=== PATIENT | male | born 1940 | race Caucasian/White ===

== ENCOUNTER → 2019-11-30 16:52 | Outpatient (CLI) | payer MEDICARE, SELFPAY ==
[2019-11-30 17:25] LABS: Add Manual Diff / Slide Review NO; Basophils Absolute Auto 100 /uL (0-100); Basophils Percent Auto 1.2 % (0-2); Eosinophils Absolute Auto 100 /uL (0-450); Eosinophils Percent Auto 1.4 % (2-4); Hematocrit 40.5 % (41-53); Hemoglobin 13.9 g/dL (13.5-17.5); Lymphocytes Absolute Auto 2200 /uL (1100-4500); Lymphocytes Percent Auto 33.7 % (25-40); Mean Corpuscular HGB Conc 34.4 % (30-36); Mean Corpuscular Hemoglobin 32.3 PG (26-34); Mean Corpuscular Volume 93.9 fL (80-100); Monocytes Absolute Auto 500 /uL (0-900); Monocytes Percent Auto 6.9 % (3-14); Neutrophils Absolute Auto 3700 /uL (1500-7000); Neutrophils Percent Auto 56.8 % (50-75); Platelet Count 194 X10^3/uL (150-400); Red Blood Cell Count 4.31 X10^6/uL (4.5-5.9); Red Cell Distribution Width 13.5 % (11.6-14.8); White Blood Cell Count 6.6 X10^3/uL (4.5-11.0)
[2019-11-30 18:06] LABS: Alanine Aminotransferase 14 IU/L (<50); Albumin Globulin Ratio 1.3 (1.0-2.8); Alkaline Phosphatase 66 U/L (38-126); Aspartate Aminotransferase 18 IU/L (17-59); BUN Creatinine Ratio 22.3 (6-22); Bilirubin Total 1.1 mg/dL (0.2-1.3); Blood Urea Nitrogen 29 mg/dL (9-20); Calcium 9.4 mg/dL (8.4-10.2); Carbon Dioxide 25 mmol/L (22-32); Chloride 106 mmol/L (98-107); Cholesterol 193 mg/dL (140-199); Estimated Glomerular Filt Rate 53.1 mL/min (>60); Globulin 3.2 g/dL (1.7-4.1); Glucose 88 mg/dL (80-110); HDL Cholesterol 59 mg/dL (40-60); HEMOLYSIS < 15 (0-50); LDL Cholesterol Calculated 103 mg/dL (<100); Potassium 4.5 mmol/L (3.4-5.1); Sodium 139 mmol/L (137-145); Total Protein 7.2 g/dL (6.3-8.2); Triglycerides 157 mg/dL (35-150)
== END ==
PROVIDERS: PCP Internal Medicine; Referring Provider Internal Medicine; Visit Provider Internal Medicine
DX: Z00.00 Encounter for general adult medical examination without abnormal findings (principal); E78.2 Mixed hyperlipidemia; R15.9 Full incontinence of feces
CPT/HCPCS: 36415; 80053; 80061; 85025

== ENCOUNTER → 2019-12-03 12:28 | Outpatient (CLI) | payer MEDICARE, SELFPAY ==
[2019-12-03 13:15] LABS: HEMOLYSIS < 15 (0-50); Iron 136 ug/dL (49-181)
[2019-12-03 13:28] LABS: Percent Iron Saturation 34 % (20-50); Total Iron Binding Capacity 405 ug/dL (261-462); Transferrin 310 mg/dL (206-381)
[2019-12-03 13:51] LABS: Ferritin 14 ng/mL (18-464)
== END ==
PROVIDERS: PCP Internal Medicine; Referring Provider Internal Medicine; Visit Provider Internal Medicine
DX: D64.9 Anemia, unspecified (principal)
CPT/HCPCS: 36415; 82728; 83540; 83550

== ENCOUNTER → 2020-07-27 11:41 | Outpatient (CLI) | payer MEDICARE, SELFPAY ==
[2020-07-27 12:40] LABS: Hematocrit 43.5 % (41-53)
[2020-07-27 12:49] LABS: Estimated Glomerular Filt Rate 54.6 mL/min (>60); HEMOLYSIS < 15 (0-50); Potassium 4.5 mmol/L (3.4-5.1)
== END ==
PROVIDERS: PCP Internal Medicine; Referring Provider Colon & Rectal Surgery; Visit Provider Colon & Rectal Surgery
DX: Z01.818 Encounter for other preprocedural examination (principal)
CPT/HCPCS: 36415; 82565; 84132; 85014; 93005; 93010

== ENCOUNTER → 2020-08-02 09:59 | Outpatient (CLI) | payer MEDICARE, SELFPAY ==
[2020-08-02 11:32] LABS: COVID19 -Nasal RAPID Negative (Negative)
== END ==
PROVIDERS: PCP Internal Medicine; Visit Provider Student in an Organized Health Care Education/Training Program
DX: Z20.822 Contact with and (suspected) exposure to COVID-19 (principal)
CPT/HCPCS: 87635; C9803

== ENCOUNTER → 2020-08-24 13:20 | Outpatient (CLI) | payer MEDICARE, SELFPAY ==
--- NOTE | 2020-08-24 | DI.MRI.S_ITS ---
PROCEDURE: MR LUMBAR SPINE WO CON INDICATIONS: Spinal stenosis, lumbar region with neurogenic cla TECHNIQUE: Noncontrast sagittal T1 spin echo and T2 fast echo, sagittal STIR, axial T1 and T2 fast spin echo through the lumbar spine. In cases with scoliosis, additional coronal T2 fast spin echo may be performed. COMPARISON: None. FINDINGS: Image quality: Excellent. Alignment and Curvature: There is normal bony alignment. Transitional lumbosacral vertebra, with hypoplastic S1-S2 disc space. Please see the montage image for spinal segmental level nomenclature for this report. Bone Marrow: Marrow is of normal overall signal. No acute vertebral body compression fractures. Spinal Cord: Conus medullaris terminates at the L2-3 level. Visualized cord demonstrates normal signal and size. Paraspinous Soft Tissues: T2 hyperintense partially visualized presumed left renal cyst. There is also large cystic appearing structure involving the S2 level of the sacrum. There is atrophy of the right psoas musculature. T12-L1: Normal appearance. L1-L2: Normal appearance. L2-L3: No canal stenosis. Partial effacement of both lateral recesses with bilaterally symmetric appearance. No foraminal stenosis. L3-L4: No canal stenosis or foraminal narrowing. Lateral recesses appear patent. L4-L5: No canal stenosis. Lateral recesses appear grossly patent. Mild left and right foraminal narrowing, although right greater than left. L5-S1: Mild canal narrowing. Lateral recesses appear grossly patent. Mild left foraminal narrowing. Minimal right foraminal stenosis. IMPRESSION: Straightening of the normal lordotic curvature. Mild bilateral foraminal narrowing as detailed above. Partially visualized large cystic lesion in the region of the S2 level of the sacrum, not included on this examination [id number]. As clinically necessary, this could be further assessed with dedicated pelvis MRI with and without contrast. This would be unusual appearance for Tarlov cysts. Atrophy of the right psoas musculature. Large T2 hyperintense possible left renal cyst although this is also not entirely visualized and could be further assessed with CT as necessary. Dictated by: Merrick Duarte M.D. on 08/24/2020 at 14:28 Approved by: Merrick Duarte M.D. on 08/24/2020 at 14:39
== END ==
PROVIDERS: PCP Internal Medicine; Referring Provider Physical Medicine & Rehabilitation Pain Medicine; Visit Provider Physical Medicine & Rehabilitation Pain Medicine
DX: M48.062 Spinal stenosis, lumbar region with neurogenic claudication (principal); M53.3 Sacrococcygeal disorders, not elsewhere classified
CPT/HCPCS: 72148

== ENCOUNTER → 2020-09-20 12:41 | Outpatient (CLI) | payer MEDICARE, SELFPAY ==
--- NOTE | 2020-09-20 | DI.MRI.S_ITS ---
PROCEDURE: MR SACRUM WO/W CON INDICATIONS: TARLOV CYSTS TECHNIQUE: This study was performed of the sacrum. Following imaging sequences were obtained: T1 weighted and STIR imaging L3 planes through the sacrum with fat saturated T1 weighted images also performed in all 3 planes. COMPARISON: [facility], MR, MR LUMBAR SPINE WO CON, 08/24/2020, 13:52. [facility] [place], CR, XR LUMBAR SPINE WITH OLBIQUES PLUS FLEXION EXTENSION, 08/14/2020, 10:40. FINDINGS: Image quality: Excellent. Alignment and curvature: There is normal bony alignment. Marrow: Marrow is of normal overall signal. No acute vertebral body compression fractures. No suspicious marrow enhancement. Paraspinous soft tissues: No paravertebral masses or abnormal enhancement. No definite abnormalities of the lumbosacral plexus can be seen. There is a prominent cystic lesion with minimal rim enhancement seen involving the sacrum, which extends from S2 through S5. There is replacement seen of the bone. This lesion measures 5.1 cm transversely by 3.6 cm AP, with a craniocaudal extent of 7.2 cm. IMPRESSION: There is a cystic lesion with minimal rim enhancement seen involving the sacrum which measures greater than 7 cm craniocaudal. The appearance is also worrisome for an indolent neoplasm. Please consider chordoma. Aneurysmal bone cyst and giant cell tumor are also possible, however. Please consider a dedicated CT of the sacrum for further evaluation. If clinically appropriate, this lesion would be amenable to percutaneous CT-guided aspiration for sampling. Dictated by: Alex Moseley M.D. on 09/22/2020 at 14:29 Approved by: Alex Moseley M.D. on 09/22/2020 at 14:50
== END ==
PROVIDERS: PCP Internal Medicine; Referring Provider Internal Medicine; Visit Provider Physical Medicine & Rehabilitation Pain Medicine
DX: M48.062 Spinal stenosis, lumbar region with neurogenic claudication (principal); G96.191 Perineural cyst
CPT/HCPCS: 72158; 72197; A9579

== ENCOUNTER → 2020-10-27 15:37 | Outpatient (CLI) | payer MEDICARE, SELFPAY ==
[2020-10-27 17:32] LABS: BUN Creatinine Ratio 19.7 (6-22); Blood Urea Nitrogen 24 mg/dL (9-20); Calcium 9.5 mg/dL (8.4-10.2); Carbon Dioxide 27 mmol/L (22-32); Chloride 106 mmol/L (98-107); Glucose 77 mg/dL (80-110); HEMOLYSIS < 15 (0-50); Potassium 4.4 mmol/L (3.4-5.1); Sodium 140 mmol/L (137-145)
== END ==
PROVIDERS: PCP Internal Medicine; Referring Provider Internal Medicine; Visit Provider Internal Medicine
DX: G96.191 Perineural cyst (principal)
CPT/HCPCS: 36415; 80048

== ENCOUNTER → 2020-11-06 09:48 | Outpatient (CLI) | payer MEDICARE, SELFPAY ==
--- NOTE | 2020-11-06 09:49 | DI.CT.S_ITS ---
PROCEDURE: CT ABDOMEN PELVIS W CON INDICATIONS: tarlov cyst TECHNIQUE: After the administration of intravenous contrast, axial sections acquired from the lung bases to the pubic symphysis. Coronal and sagittal reformats were performed. For radiation dose reduction, the following was used: automated exposure control, adjustment of mA and/or kV according to patient size. COMPARISON: [facility], MR, MR LUMBAR SPINE WO CON, 08/24/2020, 13:52. [facility], MR, MR LUMBAR SPINE WO/W CON, 09/20/2020, 13:09. FINDINGS: Image quality: Excellent. Lung bases: Unremarkable. Heart: No significant findings. ABDOMEN: Liver: Multiple small low-density lesions in the liver most likely represent small cysts versus hemangiomata. Gallbladder: There are multiple small stones. There is no significant gallbladder wall thickening. Biliary ducts: Unremarkable. Pancreas: There is dilatation of the pancreatic duct without identification of a pancreatic mass. Spleen: Unremarkable. Adrenal Glands: Unremarkable. 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 Peritoneum: No abnormal intraperitoneal fluid. No free air. Ventral Wall: No hernias. Abdominal Nodes: No retroperitoneal or mesenteric adenopathy by size criteria. Vessels: Aorta and inferior vena cava are normal in size. PELVIS: Pelvic Organs: Unremarkable. Bladder: Unremarkable. Pelvic Nodes: No enlarged lymph nodes. Miscellaneous: No hernias are seen. Bones: Total right hip arthroplasty. Left hip degenerative change. Lumbar degenerative change. Large saccular lesion in the midline in the sacrum extending from approximately S2 through S4, measuring approximately 5.5 x 5.6 x 2.3 cm. IMPRESSION: 1. Large midline cystic lesion of the sacrum extending from approximately S2 through S4, measuring approximately 5.5 x 5.6 x 2.3 cm. 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 There is enhancement of the wall of this structure seen on MRI, possibly representing inflammatory reaction or previous infection 2. Question anal mass with long segment mild rectal wall thickening and mild rectal fecal impaction. 3. Left kidney is likely chronically nonfunctioning secondary to a UPJ obstruction, marked hydronephrosis, and marked cortical thinning. 4. Normal appearing right kidney. 5. Likely chronic, short segment distal aortic dissection, just above the aortic bifurcation. There is no associated aneurysm. 6. 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 7. Pancreatic ductal dilatation without demonstration of a pancreatic mass. Recommend pancreatic protocol MRI. 8. Cholelithiasis. Comment: Regarding the midline enhancing cystic structure, most likely representing a peripherally enhancing Tarlov cyst, but not excluding a possible malignant process, would consider CT myelography. If this structure communicates with the CSF, it would very likely be a Tarlov cyst. Also, would recommend neurosurgical consultation, as there is risk of pathologic fracture. Additional comment: Recommend direct visualization to evaluate possible anal mass 2nd additional comment: Recommend pancreatic protocol MRI to evaluate the region of the head of the pancreas. Pancreatic ductal dilatation without evidence of a pancreatic mass. Comment: An Urgent Findings note was created in PACS to ensure notification of the referring clinician. Dictated by: Ajay Lemus M.D. on 11/06/2020 at 10:23 Approved by: Ajay Lemus M.D. on 11/06/2020 at 11:48
== END ==
PROVIDERS: PCP Internal Medicine; Referring Provider Internal Medicine; Visit Provider Internal Medicine
DX: G96.191 Perineural cyst (principal); K56.41 Fecal impaction; N13.0 Hydronephrosis with ureteropelvic junction obstruction; I72.3 Aneurysm of iliac artery; K86.89 Other specified diseases of pancreas; K80.20 Calculus of gallbladder without cholecystitis without obstruction
CPT/HCPCS: 74177; Q9967

== ENCOUNTER → 2020-11-21 16:45 | Outpatient (CLI) | payer MEDICARE, SELFPAY ==
--- NOTE | 2020-11-21 16:46 | DI.MRI.S_ITS ---
PROCEDURE: MR ABDOMEN WO/W CON INDICATIONS: dilated pancreatic duct TECHNIQUE: Coronal HASTE, axial 2D FLASH in- and [id number]; axial breath-hold T2 FSE with fat saturation from the hepatic dome to the iliac crests. Oblique coronal thin-slice and radial thick slab HASTE through the biliary system. Dynamic axial VIBE during administration of contrast. Post-contrast coronal VIBE or 2D FLASH with fat saturation from the hepatic dome to the iliac crests. Optional diffusion weighted imaging and ADC may be performed. COMPARISON: [facility], MR, MR LUMBAR SPINE WO CON, 08/24/2020, 13:52. FINDINGS: Image quality: Good. Pancreas and biliary system: Gallbladder is not distended. Multiple gallstones. CBD measures 0.6 cm. The pancreatic duct in the head of the pancreas is minimally prominent measuring 0.4 cm, (3/15). The duct in the uncinate process is prominent. The minor duct is visualized. The pancreatic duct in the body measures 0.4 cm. The duct in the pancreatic tail measures 0.3 cm. No filling defect. No pancreatic mass or cystic lesion or suspicious enhancement. Pancreatic enhancement is uniform. No peripancreatic fluid collection. Solid organs: Liver is normal in size. Several T2 hyperintense cysts. No suspicious enhancement. Spleen is normal in size and enhancement. No adrenal nodules. Severe hydronephrosis of the left kidney. Severe thinning of the left kidney consistent with a chronic process. No hydroureter. No right kidney hydronephrosis. The right kidney demonstrates a few T2 hyperintense cysts. Nodes and vessels: No retroperitoneal or mesenteric adenopathy by size criteria. Aorta and inferior vena cava are normal in size. The small aortic ulceration distal aorta just prior to the iliac bifurcation, (/), unchanged. Bowel and peritoneum: The stomach is not distended. Proximal duodenum is prominent. Duodenal diverticulum. No small bowel obstruction. Multiple colonic diverticuli. No free fluid. Lung bases: No basal pleural effusions. Heart size is normal. Bones and soft tissues: No ventral hernias. Lumbar spine Schmorl's node. Bone marrow is normal in overall signal. Sacral Tarlov cyst partially visualized. IMPRESSION: 1. No pancreatic mass or cystic lesion. Minimal dilatation of the pancreatic duct. 2. No biliary ductal dilatation. 3. Gallstones. 4. Severe atrophy of the left kidney due to chronic hydronephrosis. 5. Small stable distal abdominal aortic ulcer. Dictated by: Nino Fagan M.D. on 11/22/2020 at 8:21 Approved by: Nino Fagan M.D. on 11/22/2020 at 8:43
== END ==
PROVIDERS: PCP Internal Medicine; Referring Provider Internal Medicine; Visit Provider Internal Medicine
DX: K86.89 Other specified diseases of pancreas (principal); N13.30 Unspecified hydronephrosis; I71.4 Abdominal aortic aneurysm, without rupture; K57.10 Diverticulosis of small intestine without perforation or abscess without bleeding; K57.90 Diverticulosis of intestine, part unspecified, without perforation or abscess without bleeding; K80.20 Calculus of gallbladder without cholecystitis without obstruction
CPT/HCPCS: 74183

== ENCOUNTER → 2021-01-19 12:29 | Outpatient (CLI) | payer MEDICARE, SELFPAY ==
--- NOTE | 2021-01-19 12:33 | DI.RAD.S_ITS ---
PROCEDURE: FL MYELOGRAM SPINE LUMBOSACRAL INDICATIONS: CT myelogram-tarlov cyst. per abd/pelvis CT 11/06/20 COMPARISON: None. TECHNIQUE: The indications, alternatives, benefits, risks and complications of the procedure were explained to the patient. Written informed consent was obtained and placed in the chart. The patient was placed in a prone position on the fluoroscopy table, and a level was chosen for percutaneous access under fluoroscopic guidance. The skin was prepped and draped in a sterile fashion. After local anaesthetic, a spinal needle was then used to enter the intrathecal space, with return of clear cerebrospinal fluid. Ten mL of Isovue M-300 were administered intrathecally under fluoroscopic visualization. The needle was then withdrawn, and a bandage applied to the puncture site. Fluoroscopic spot films were then acquired in various positions. FINDINGS: Standing frontal, lateral, and oblique views demonstrate no significant central canal stenoses. Access level: L1-2 Medications: 1% lidocaine for local anaesthesia. Complications: None. Patient was transferred to CT for subsequent CT myelogram. IMPRESSION: Successful fluoroscopically guided administration of iodinated contrast into the lumbar spine central canal for CT myelogram. Dictated by: Jabier Willis M.D. on 01/19/2021 at 15:11 Approved by: Jabier Willis M.D. on 01/19/2021 at 15:12
--- NOTE | 2021-01-19 12:33 | DI.CT.S_ITS ---
PROCEDURE: CT LUMBAR SPINE W CON INDICATIONS: Low back pain TECHNIQUE: After the intrathecal administration of 15 mL intrathecal contrast, 3 mm thick sections acquired from T12 to the sacrum. Sagittal and coronal reformats were then constructed. For radiation dose reduction, the following was used: automated exposure control. COMPARISON: [facility], CT, CT ABDOMEN PELVIS W CON, 11/06/2020, 9:55. [facility], MR, MR LUMBAR SPINE WO/W CON, 09/20/2020, 13:09. [facility], MR, MR LUMBAR SPINE WO CON, 08/24/2020, 13:52. FINDINGS: Image quality: Excellent. Bones: Spinal alignment is normal. No spondylolysis or spondylolisthesis. No suspicious bony lesions. No acute fractures. Multilevel degenerative disc disease and arthropathy noted in the lumbar spine. Mild central stenosis throughout the exam. Soft tissues: No retroperitoneal masses. Visualized aorta demonstrates normal caliber. Incidental right psoas muscle fatty atrophy. Large right renal cysts with atrophy and partially imaged cholelithiasis. Miscellaneous: Large lobulated cystic lesion in the sacrum with sacral remodeling again noted, without gross communication with the thecal sac. Hounsfield units of the cystic mass measures 30 on the current study, and approximately 10 HU on the prior CT abdomen and pelvis on 11/06/2020 IMPRESSION: 1. Sacral cystic mass lesion with sacral osseous remodeling without gross communication with the thecal sac. Nevertheless, elevated density relative to prior CT suggests microcommunication perhaps with typical ball-valve mechanism. Given this as well as location and configuration, primary differential remains large sacral perineural cysts (Tarlov cyst). Cystic neoplasm would be less likely differential. Consider percutaneous biopsy. Approved by: Figueroa More M.D. on 01/19/2021 at 17:36
[2021-01-19 13:15] VITALS: BP 138/94; PULSE 64; RESP 16; TEMP 36.5; O2SAT 99; BMI 24.3
[2021-01-19 13:34] LABS: Prothrombin Time 10.9 SECONDS (10.1-12.7)
[2021-01-19 15:00] VITALS: BP 116/72; PULSE 53; RESP 12; TEMP 36.8; O2SAT 99
[2021-01-19 15:30] VITALS: BP 121/77; PULSE 58; RESP 16; O2SAT 99
--- NOTE | 2021-01-19 15:31 | SUR.PHASEII ---
pt back to CT scan with radiology.
--- NOTE | 2021-01-19 15:46 | SUR.PHASEII ---
1540 - Report to NOAM Mondragon and care [facility].
[2021-01-19 16:30] VITALS: BP 139/76; PULSE 71; RESP 14; TEMP 36.8; O2SAT 98
[2021-01-19 17:00] VITALS: BP 139/86; PULSE 59; RESP 16; TEMP 36.8; O2SAT 100
--- NOTE | 2021-01-19 17:08 | SUR.PHASEII ---
Pt d/c'd with s/p myelogram/ct d/c instructions, pt verbalized understanding of precautions, when to call DR, and when/how to follow up. Pt transported to hospital entrance via wheelchair in stable condition. VSS, A/Ox4
== END ==
PROVIDERS: PCP Internal Medicine; Referring Provider Internal Medicine; Visit Provider Internal Medicine
DX: M54.50 Low back pain, unspecified (principal)
CPT/HCPCS: 36415; 72132; 72265; 85610

== ENCOUNTER 2022-01-04 12:25 | Emergency (ER) | payer MEDICARE, SELFPAY ==
[2022-01-04 12:41] VITALS: BP 148/89; PULSE 77; RESP 18; TEMP 36.9; O2SAT 95; BMI 24.3
--- NOTE | 2022-01-04 12:54 | ED.SKABFB ---
HPI - Skin/Abscess/Foreign Bdy <Antwon Howard PA-C - Last Filed: 01/04/22 14:29> General Chief complaint: Skin/Abscess/Foreign Body Stated complaint: pt states object stuck in rectum Time Seen by Provider: 01/04/22 12:40 Source: patient Mode of arrival: Ambulatory Limitations: no limitations History of Present Illness HPI narrative: Patient is a 81-year-old male who presents to the emergency room today with complaint of foreign body in his rectum. Patient states he inserted a sample bottle in his rectum this morning about 6:00 a.m.. States he has tried to remove the bottle but cannot remove it at this time. Denies any bleeding from the rectum at this time also denies being on any blood thinners. Admits to having a history of prolapsed rectum that was repaired surgically about 1.5 years ago. Has no complaints of pain at this time, just states he would like to have the object removed. Denies any other concerns. Related Data Home Medications Medication Instructions Recorded Confirmed cranberry 400 mg capsule 400 mg PO DAILY 12/09/19 12/29/20 multivitamin 1 cap PO DAILY 12/09/19 12/29/20 psyllium husk 0.52 gram capsule 0.52 gram PO DAILY 12/09/19 12/29/20 (Fiber Laxative (psyllium husk)) Allergies Allergy/AdvReac Type Severity Reaction Status Date / Time No Known Drug Allergies Allergy Verified 01/19/21 13:30 Review of Systems <Antwon Howard PA-C - Last Filed: 01/04/22 14:29> Review of Systems Narrative: R.O.S.: General: No fever, chills or fatigue. Cardiovascular: No chest pain or palpitations Respiratory: No S.O.B. HEENT: No congestion, ear pain, rhinorrhea, sore throat or tinnitus Gastrointestinal: No nausea or vomiting Rectal: Has complained of body in rectum. Skin: No rash or associated abnormalities Musculoskeletal: No pain in muscles or joints, no limitation of range of motion, no paresthesia or numbness. ?? Neurological: Awake, alert and in not apparent distress. No Headaches, changes in vision or other related neurological concerns. Patient History <Antwon Howard PA-C - Last Filed: 01/04/22 14:29> Medical History Acquired right foot drop Chronic renal failure, stage 3a Recovering alcoholic in remission Rectal prolapse Renal cyst Spinal stenosis Tarlov cyst Surgical History History of rectal surgery (~08/04/20) Hx of appendectomy Family History Grandmother Diabetes mellitus Social History marital status: unknown household members: none occupational status: previously employed Smoking Status: Former smoker alcohol intake: never substance use type: does not use Smoking Status: Former smoker Substance Use Type: does not use Exam <Antwon Howard PA-C - Last Filed: 01/04/22 14:29> Narrative Exam Narrative: Physical Exam: ? General: normal appearance, well developed, well nourished, alert, and awake. Not in acute distress. ? Head: Normocephalic, no lesions. Chest: Lungs CTAB, no rales, rhonchi or wheezes. ?? Heart: RRR, no murmurs, rubs or gallops. Eyes: PERRLA, EOM's full, conjunctivae clear. ? Neuro: Physiological, no localizing findings, CN3-12 intact. ?? Extremities: Warm, well perfused, FROM, no deformities, no edema. ?? Skin: Normal, no rashes, no lesions noted. ?? PSYCHIATRIC: The mood is good, no blunted affect. Speech is clear. Thought process is linear, thought content is appropriate. The voice is without significant inflection. Gastrointestinal: Soft; NT; ND; Pos BS with Neg. rebound tenderness. No scars or major deformities noted on Visual Inspection. Rectal: Physical examination of the external rectal canal was unremarkable. Patient does have discharge or mucousy secretions from the rectum. Digital examination was able to palpate a firm object. When patient was asked to bear down rectal canal appeared to start to exit the rectum. Patient was then passed to discontinue bearing down. Initial Vital Signs Initial Vital Signs: Vital Signs Temperature 98.4 F 01/04/22 12:41 Pulse Rate 77 01/04/22 12:41 Respiratory Rate 18 01/04/22 12:41 Blood Pressure 148/89 H 09/23/22 12:41 Pulse Oximetry 95 01/04/22 12:41 Oxygen Delivery Method 01/04/22 12:41 <Evaristo Mejia MD - Last Filed: 01/09/22 06:58> Initial Vital Signs Initial Vital Signs: Vital Signs Temperature 98.4 F 01/04/22 12:41 Pulse Rate 77 01/04/22 12:41 Respiratory Rate 18 01/04/22 12:41 Blood Pressure 148/89 H 01/04/22 12:41 Pulse Oximetry 95 01/04/22 12:41 Oxygen Delivery Method 01/04/22 12:41 Course <Antwon Howard PA-C - Last Filed: 01/04/22 14:29> Orders Ordered: ED Orders 01/04/22 12:51 XR abdomen min 2V Stat Vital Signs Vital signs: Vital Signs - 8 hr 01/04/22 12:41 Temperature 98.4 F Pulse Rate 77 Respiratory Rate 18 Blood Pressure 148/89 H Pulse Oximetry 95 Oxygen Delivery Method Room Air <Evaristo Mejia MD - Last Filed: 01/09/22 06:58> Orders Ordered: ED Orders 01/04/22 12:51 XR abdomen min 2V Stat Vital Signs Vital signs: Vital Signs - 8 hr 01/04/22 12:41 Temperature 98.4 F Pulse Rate 77 Respiratory Rate 18 Blood Pressure 148/89 H Pulse Oximetry 95 Oxygen Delivery Method Room Air MDM - Skin/Abscess/Foreign Bdy <Antwon Howard PA-C - Last Filed: 01/04/22 14:29> MDM Narrative Medical decision making narrative: Patient to the emergency room today with complaint of foreign body in his rectum that he inserted this morning at about 6:00 a.m.. Patient was evaluated with Dr. Quevedo and two-view abdominal x-ray was ordered. Dr. Russell was in the emergency room revealed another case and stated she would like to try and manually remove the foreign object before referring patient to surgery. X-ray was ordered and while we were waiting on x-ray Dr. Russell was able to manually remove the foreign object. The foreign object appear to be a full-sized bottle of shampoo or conditioner. Dr. Russell also advised the patient to follow up with her should he have any concerns. Dr. Saw us discussed perforated bowel and related abdominal concerns with the patient and advised patient to report to the emergency room showed emergent concerns arise and to follow up her with her for non emergent concerns. Nurse informed me the patient left the room against medical advise. This was done before the x-ray could be done. Discharge Plan Departure Patient Disposition: Left Against Medical Advice Clinical Impression: FB anus/rectum, Left against medical advice Instructions: DI for Removal of Foreign Body From Rectum Activity Restrictions/Additional Instructions: *You have been diagnosed with a foreign body in her rectum that was removed today in the ER. Further conversation with Dr. Russell she recommended you follow-up with her with any additional concerns. Her phone number is [phone]. [ ] *What to do: *Please continue to take your regular medications as directed. [ ] New medication prescriptions sent to your pharmacy: [ ] [ ] New medication written as a paper prescription [x] No new medications given *Please follow up with your primary care provider in 2-3 days, call for an appointment. Let them know you were seen in the Emergency Department and that we ask that you be seen in follow up. We will electronically transmit a record of today's note if your PCP is in our system *If you do not have a primary care provider please contact the [facility] Resource line at [phone]. They will ask some questions about your medical history and help get you set up with a doctor in the community. *Return to Emergency Department if you should have any new, worsening or concerning symptoms, such as [fever greater than 101 F, shaking chills, worsening pain, persistent vomiting or other bothersome symptoms] Prescriptions: No Action multivitamin Capsule 1 cap PO DAILY cranberry 400 mg capsule 400 mg PO DAILY Rx Instructions: administer with a meal psyllium husk [Fiber Laxative (psyllium husk)] 0.52 gram capsule 0.52 gram PO DAILY Referrals: Monalisa Russell MD [Physician] - Michael Mireles MD [Primary Care Provider] - Stand Alone Forms: Against Medical Advice <Evaristo Mejia MD - Last Filed: 01/09/22 06:58> Cosign ED Attending Cosbobbiature Attestation: I personally evaluated and examined the patient and agree with the assessment, treatment plan, and disposition of the patient as recorded by the APC.
--- NOTE | 2022-01-04 13:44 | PC.NURSE ---
Dr. Russell at bedside with KATE Howard for removal of bottle from rectum. pt tolerated well.
--- NOTE | 2022-01-04 13:45 | P.PCN_ITS ---
Procedures Date/Time Date of procedure: 01/04/22 Time of procedure: 13:45 General Procedure description: Removal of rectal foreign body Mr. Jarek gandhi was comfortable throughout the procedure without any sedation. He wished to drive himself home after the procedure if possible. He denied any pain. Some pressure was placed on the abdomen by physician food and beverage assistant and I was able to perform a rectal exam and remove the object manually. At the end of the case there was some mucosal excoriations seen in the rectal mucosa. No active bleeding. And otherwise everything looked normal the rectum was loose with some evidence of prolapse. I advised the patient to be aware of signs and of perforation specifically abdominal pain. I think the mucosal irritation will heal well on its own, but I advised that he may follow-up in my office as needed. Complications: none Foreign Body Removal Time out performed: yes Site: rectum Description of foreign body: other (Shampoo bottle) Sedation/Analgesia: none Technique: manual removal Confirmed by: palpation Complications: none Post-procedure exam: awake, alert, normal BP and normal HR
--- NOTE | 2022-01-04 13:50 | P.HP_ITS ---
History of Present Illness History of Present Illness Chief complaint: pt states object stuck in rectum Narrative: Patient says the object has been stuck for several hours now. He attempted to remove it himself manually but was unable to. He became worried that he could not get it out and presented to the emergency room. He has had this happen before in the past. And he denies at this time any abdominal pain nausea vomiting or other symptoms. He describes a fullness and a sensation of awareness that there is an object within his abdomen/rectal cavity Patient History Medical History Acquired right foot drop Chronic renal failure, stage 3a Recovering alcoholic in remission Rectal prolapse Renal cyst Spinal stenosis Tarlov cyst Surgical History History of rectal surgery (~08/04/20) Hx of appendectomy Family & Social History Family History Grandmother Diabetes mellitus Social History: household members none Safety & Behavioral: Feels Safe in Current Yes Environment Been Physically Hurt or No Threatened By a Person Tobacco & Substance use: Smoking Status Former smoker alcohol intake never Substance Use Type does not use Meds Home Medications and Allergies Home Medications Medication Instructions Recorded Confirmed Type cranberry 400 mg capsule 400 mg PO DAILY 12/09/19 12/29/20 History multivitamin 1 cap PO DAILY 12/09/19 12/29/20 History psyllium husk 0.52 gram capsule 0.52 gram PO DAILY 12/09/19 12/29/20 History (Fiber Laxative (psyllium husk)) Allergies Allergy/AdvReac Type Severity Reaction Status Date / Time No Known Drug Allergies Allergy Verified 01/19/21 13:30 Exam Vital Signs (past 8 hours): - 01/04/22 12:41 Temperature 98.4 F Pulse Rate 77 Respiratory Rate 18 Blood Pressure 148/89 H Pulse Oximetry 95 Oxygen Delivery Method Room Air Oxygen Delivery Method Room Air Const General: cooperative, healthy appearing and comfortable [facility] Head: normal to inspection Eyes General: appearance normal, both eyes and all related structures Resp Effort & Inspection: normal respiratory effort and able to speak in complete sentences GI Palpation: soft (The object is palpable through the abdominal wall.) and No tender Assessment & Plan Assessment and plan (1) FB anus/rectum: Status: Acute Plan I discussed the options with the patient who very much would like for me to try without any further IV sedation to attempt to remove this foreign body manually. I discussed with him the possibility of perforation or damage to the anal rectal area he understands fully and would like to proceed. Procedure note is documented separately. The patient did very well and may be sent home from the emergency room. He can follow up in my office as needed if he would like me to check the rectal area in a day or so and or if there are any other questions or concerns. I spent less than half an hour performing the procedure and history and physical for this patient. Time Spent With Patient Critical Care time: I spent a total of [] minutes of critical care time on this patient's care today; this time is exclusive of procedural time.
--- NOTE | 2022-01-04 14:18 | PC.NURSE ---
pt not in room when xray came to complete imaging. pt not in bathrooms either, or otherwise on er unit. gown on bed. called pt cell # [phone] and no answer, unable to leave a voicemail, phone continues to ring. called home # [phone] pt answered phone and states he left because i asked why i had to stay and waited 30 mins for an answer why i couldnt leave and no one gave me an answer so i left No staff here spoke with patient about ok to leave. PA explained to patient that he needed to wait for xray. pt at home and does not intend to return. AMA dc to be completed. provider notified.
== END 2022-01-04 14:20 | disposition left against medical advice (07) ==
PROVIDERS: Emergency Provider Physician Assistant; PCP Internal Medicine
DX: T18.5XXA Foreign body in anus and rectum, initial encounter (principal)
CPT/HCPCS: 99281

== ENCOUNTER → 2023-06-10 07:24 | Outpatient (CLI) | payer OTHER, MEDICARE, SELFPAY ==
[2023-06-10 08:17] LABS: Add Manual Diff / Slide Review NO; Basophils Absolute Auto 0 /uL (0-100); Basophils Percent Auto 0.6 % (0-2); Eosinophils Absolute Auto 200 /uL (0-450); Hematocrit 39.9 % (41-53); Hemoglobin 13.8 g/dL (13.5-17.5); Lymphocytes Absolute Auto 3100 /uL (1100-4500); Lymphocytes Percent Auto 42.2 % (25-40); Mean Corpuscular HGB Conc 34.6 % (30-36); Mean Corpuscular Hemoglobin 32.3 PG (26-34); Mean Corpuscular Volume 93.5 fL (80-100); Monocytes Absolute Auto 500 /uL (0-900); Neutrophils Absolute Auto 3600 /uL (1500-7000); Neutrophils Percent Auto 48.2 % (50-75); Platelet Count 220 X10^3/uL (150-400); Red Blood Cell Count 4.27 X10^6/uL (4.5-5.9); Red Cell Distribution Width 12.9 % (11.6-14.8); White Blood Cell Count 7.4 X10^3/uL (4.5-11.0)
[2023-06-10 08:51] LABS: Alanine Aminotransferase 14 IU/L (<50); Albumin 3.6 g/dL (3.5-5.0); Alkaline Phosphatase 85 U/L (38-126); Aspartate Aminotransferase 17 IU/L (17-59); BUN Creatinine Ratio 17.7 (6-22); Blood Urea Nitrogen 20 mg/dL (9-20); Calcium 9.3 mg/dL (8.4-10.2); Carbon Dioxide 23 mmol/L (22-32); Chloride 109 mmol/L (98-107); Cholesterol 176 mg/dL (140-199); Estimated Glomerular Filt Rate > 60 mL/min (>60); Globulin 3.5 g/dL (1.7-4.1); Glucose 88 mg/dL (80-110); HDL Cholesterol 56 mg/dL (40-60); HEMOLYSIS < 15 (0-50); LDL Cholesterol Calculated 100 mg/dL (<100); Sodium 138 mmol/L (137-145); Total Protein 7.1 g/dL (6.3-8.2); Triglycerides 102 mg/dL (35-150)
== END ==
PROVIDERS: PCP Internal Medicine; Referring Provider Internal Medicine; Visit Provider Internal Medicine
DX: N40.1 Benign prostatic hyperplasia with lower urinary tract symptoms (principal); N13.8 Other obstructive and reflux uropathy; N18.31 Chronic kidney disease, stage 3a; D64.9 Anemia, unspecified; N28.1 Cyst of kidney, acquired
CPT/HCPCS: 36415; 80053; 80061; 85025

== ENCOUNTER → 2024-06-01 10:06 | Outpatient (CLI) | payer MEDICARE, SELFPAY ==
[2024-06-01 15:59] LABS: Alanine Aminotransferase 18 IU/L (<50); Albumin 3.8 g/dL (3.5-5.0); Albumin Globulin Ratio 1.1 (1.0-2.8); Alkaline Phosphatase 74 U/L (38-126); Aspartate Aminotransferase 23 IU/L (17-59); BUN Creatinine Ratio 20.9 (6-22); Bilirubin Total 0.9 mg/dL (0.2-1.3); Blood Urea Nitrogen 24 mg/dL (9-20); Calcium 9.4 mg/dL (8.4-10.2); Carbon Dioxide 25 mmol/L (22-32); Chloride 107 mmol/L (98-107); Estimated Glomerular Filt Rate > 60 mL/min (>60); Globulin 3.4 g/dL (1.7-4.1); Glucose 99 mg/dL (80-110); HEMOLYSIS < 15 (0-50); Sodium 140 mmol/L (137-145); Total Protein 7.2 g/dL (6.3-8.2)
== END ==
PROVIDERS: PCP Internal Medicine; Referring Provider Internal Medicine; Visit Provider Internal Medicine
DX: N18.31 Chronic kidney disease, stage 3a (principal); Z79.899 Other long term (current) drug therapy
CPT/HCPCS: 36415; 80053